=== PATIENT | female | born 1940 | race Caucasian/White ===

== ENCOUNTER → 2016-08-27 | Outpatient (CLI) | payer OTHER ==
[~2016-08-27] MED LIST: ASPIR 8181 MG PO; GINKGO BILOBA120 M1 PO; HYDROCODONE-APA1 TA1 PO; IRON SUPPLEMEN325 MG PO; ONDANSETRON HCL4 M2 PO; PRAVACHOL40 MG PO; PRINIVIL20 MG PO; PROTONIX40 M1 PO; TOPROL XL100 MG PO; TRANSDERM-SCO1 PATCH TD; VITAMIN D 5050000 I1 PO
[2016-08-27 17:22] LABS: CREATININE 0.8 mg/dL (0.6-1.0)
== END ==
LOC: CAT 16:17
PROVIDERS: Nuclear Medicine Nuclear Cardiology
DX: I71.4 Abdominal aortic aneurysm, without rupture (principal); Z95.828 Presence of other vascular implants and grafts

== ENCOUNTER → 2017-08-29 | Outpatient (CLI) | payer OTHER ==
[2017-08-29 10:59] LABS: CREATININE 0.7 mg/dL (0.6-1.0)
== END ==
LOC: LABMALL 09:51
PROVIDERS: Nuclear Medicine Nuclear Cardiology
DX: Z01.812 Encounter for preprocedural laboratory examination (principal); K44.9 Diaphragmatic hernia without obstruction or gangrene; K57.10 Diverticulosis of small intestine without perforation or abscess without bleeding; M16.0 Bilateral primary osteoarthritis of hip; J98.11 Atelectasis; K76.89 Other specified diseases of liver; Z90.49 Acquired absence of other specified parts of digestive tract; Z95.828 Presence of other vascular implants and grafts